=== PATIENT | male | born 1990 | race Caucasian/White ===

== ENCOUNTER 2020-03-31 21:43 | Emergency (ER) | payer OTHER | END 2020-03-31 22:06 | disposition home or self-care (01) | LOC: BURERS 21:43 | DX: S83.411A Sprain of medial collateral ligament of right knee, initial encounter (principal); X50.9XXA Other and unspecified overexertion or strenuous movements or postures, initial encounter | CPT/HCPCS: 99283 ==

== ENCOUNTER 2021-03-01 10:55 | Emergency (ER) | payer BC, OTHER ==
[2021-03-01 22:19] LABS: SARS-CoV-2 PCR by NAA DETECTED (NotDetected)
== END 2021-03-01 12:30 | disposition home or self-care (01) ==
LOC: BURERS 10:55
DX: U07.1 COVID-19 (principal); G43.909 Migraine, unspecified, not intractable, without status migrainosus
CPT/HCPCS: 71046; 87804; U0003; U0005